=== PATIENT | female | born 1980 | race Asian ===

== ENCOUNTER 2017-03-23 23:06 | Emergency (ER) | payer OTHER ==
[2017-03-24 00:27] LABS: ABG BASE EXCESS -0.7 (-2.0-2.0); ABG HCO3 19.3 MEQ/L (22.0-26.0); ABG PARTIAL PRESSURE CO2 21.4 mmHg (35.0-45.0); ABG PARTIAL PRESSURE O2 150.4 mmHg (75.0-100.0); ABG STANDARD HCO3 23.9 MEQ/L (22.0-26.0); ABG pH (ARTERIAL) 7.574 UNITS (7.350-7.450)
[2017-03-24] MEDS: LORazepam 1 MG TAB PO (01:06)
[2017-03-24 01:49] LABS: ANION GAP 6 MEQ/L (8-16); BLOOD UREA NITROGEN 11 MG/DL (7-18); CALCIUM LEVEL 8.9 MG/DL (8.5-10.1); CARBON DIOXIDE LEVEL 30 MEQ/L (21-32); CHLORIDE LEVEL 103 MEQ/L (98-107); CREATININE FOR GFR 0.61 MG/DL (0.55-1.02); GLOMERULAR FILTRATION RATE > 60.0 (>60); GLUCOSE, FASTING 102 MG/DL (70-105); MAGNESIUM LEVEL 2.1 MG/DL (1.8-2.4); POTASSIUM SERUM 4.9 MEQ/L (3.5-5.1); SODIUM LEVEL 139 MEQ/L (136-145)
== END 2017-03-24 02:43 | disposition home or self-care (01) ==
LOC: M ED 23:06
DX: I49.49 Other premature depolarization (principal); I45.2 Bifascicular block
CPT/HCPCS: 71020

== ENCOUNTER → 2017-10-03 | Outpatient (CLI) | payer SELFPAY | LOC: M WUC 09:39 | DX: R76.11 Nonspecific reaction to tuberculin skin test without active tuberculosis (principal) | CPT/HCPCS: 71046 ==

== ENCOUNTER 2018-02-02 13:02 | Day surgery (SDC) | payer OTHER ==
[2018-02-02 15:43] LABS: BASO % 0.3 % (0.0-1.0); EOS % 0.3 % (0.0-3.0); HEMOGLOBIN 12.8 g/dl (12.0-15.5); IMMATURE GRANULOCYTE % 0.3 % (0-3.0); LYMPH # 1.6 10^3/uL (1.5-4.5); LYMPH % 9.9 % (24.0-44.0); MEAN CORPUSCULAR HEMOGLOBIN 28.6 pg (27.0-33.0); MEAN CORPUSCULAR HGB CONC 32.8 g/dl (32.0-36.5); MEAN CORPUSCULAR VOLUME 87.2 fl (80.0-96.0); MONO # 0.5 10^3/uL (0.0-0.8); MONO % 2.9 % (0.0-5.0); NEUTROPHILS # 13.6 10^3/uL (1.8-7.7); NEUTROPHILS % 86.3 % (36.0-66.0); PLATELET COUNT, AUTOMATED 346 10^3/uL (150-450); RED BLOOD COUNT 4.47 10^6/uL (4.00-5.40); RED CELL DISTRIBUTION WIDTH 13.3 % (11.5-14.5); WHITE BLOOD COUNT 15.7 10^3/uL (4.0-10.0)
[2018-02-02 15:53] LABS: CHLAMYDIA DNA AMPLIFICATION NEGATIVE (NEGATIVE); GC DNA AMPLIFICATION NEGATIVE (NEGATIVE)
[2018-02-02 16:39] LABS: ALBUMIN/GLOBULIN RATIO 1.14 (1.00-1.93); ALKALINE PHOSPHATASE 64 U/L (45-117); ALT/SGPT 32 U/L (12-78); AST/SGOT 21 U/L (7-37); BILIRUBIN,DIRECT < 0.1 MG/DL (0.0-0.2); BILIRUBIN,TOTAL 0.4 MG/DL (0.2-1.0); HCG, SERUM QUANTITATIVE 7413 MIU/ML; LIPASE 174 U/L (73-393); TOTAL PROTEIN 7.5 GM/DL (6.4-8.2)
[2018-02-02] MEDS: BUPIVACAINE HCL 0.25% 30 ML VIAL As Ordered (18:25)
[2018-02-02] MEDS ORDERED: dexameTHASONE 4 MG/ML 1ML VIAL (J1100) As Ordered (18:43)
[2018-02-02] MEDS ORDERED: NEOSTIGMINE 10 MG/10 ML VIAL (J2710) As Ordered (18:43)
[2018-02-02] MEDS ORDERED: GLYCOPYRROLATE INJ 0.2 MG/ML 2 ML VIAL As Ordered (18:43)
[2018-02-02] MEDS ORDERED: KETOROLAC 60 MG/2 ML VIAL (J1885) As Ordered (18:43)
[2018-02-02] MEDS ORDERED: METOCLOPRAMIDE INJ 10MG/2ML VIAL (J2765) As Ordered (18:43)
[2018-02-02] MEDS ORDERED: fentaNYL 250 MCG/5 ML INJECTION (J3010) As Ordered (18:43)
[2018-02-02] MEDS ORDERED: ONDANSETRON 4MG/2ML VIAL (J2405) As Ordered (18:43)
[2018-02-02] MEDS ORDERED: PROPOFOL 200 MG/20 ML VIAL As Ordered (18:43)
[2018-02-02] MEDS ORDERED: ROCURONIUM BROMIDE 50 MG/5 ML VIAL As Ordered ×2 (18:43)
[2018-02-02] MEDS ORDERED: MIDAZOLAM INJ 2 MG/2 ML VIAL (J2250) As Ordered (18:43)
[2018-02-02] MEDS ORDERED: LIDOCAINE 2% INJ 100 MG/5 ML SDV (FOR ANES.) As Ordered (18:43)
[2018-02-02] MEDS: SILVER NITRATE APPLICATOR As Ordered ×2 (18:59)
[2018-02-02] MEDS ORDERED: SUGAMMADEX SODIUM 500 MG/5 ML VIAL (BRIDION) As Ordered (19:04)
[2018-02-02] MEDS ORDERED: fentaNYL 100 MCG/2 ML INJECTION (J3010) IV (19:30)
[2018-02-02] MEDS ORDERED: METOCLOPRAMIDE INJ 10MG/2ML VIAL (J2765) IV (19:30)
[2018-02-02] MEDS ORDERED: PERCOCET 5MG/325MG TAB PO (19:30)
[2018-02-02] MEDS ORDERED: ONDANSETRON 4MG/2ML VIAL (J2405) IV (19:30)
[2018-02-02] MEDS ORDERED: MEPERIDINE INJ 25 MG/ML VIAL (J2175) IV (19:30)
[2018-02-02] MEDS ORDERED: LR 1,000 ML IV (19:30)
[2018-02-02] MEDS: IBUPROFEN 800 MG TAB PO ×2 (21:00→21:47)
[2018-02-02] MEDS ORDERED: IBUPROFEN 400 MG TAB As Ordered (21:26)
== END 2018-02-02 22:45 | disposition home or self-care (01) ==
LOC: M SDC 22:45 → M ED 13:02 → M SDC 16:43
DX: O00.102 Left tubal pregnancy without intrauterine pregnancy (principal); N73.6 Female pelvic peritoneal adhesions (postinfective); A54.85 Gonococcal peritonitis
CPT/HCPCS: 59151

== ENCOUNTER 2018-05-23 20:59 | Emergency (ER) | payer OTHER ==
[~2018-05-23] VITALS: Ht 149.9 cm; Wt 47.7 kg
[~2018-05-23 20:59] MED LIST: PRENTAB29 PO
[2018-05-23] MEDS: ALBUTEROL SULFATE 2.5 MG/0.5 ML INH NEB SOLN INH SCH ×3 (22:01→23:45)
[2018-05-23] MEDS ORDERED: predniSONE 20 MG TAB PO ONE (22:45)
[2018-05-23] MEDS ORDERED: ALBUTEROL SULFATE 2.5 MG/0.5 ML INH NEB SOLN NEB ONE (22:45)
[2018-05-23] MEDS ORDERED: PROAAER10 INH (23:47)
[2018-05-23] MEDS ORDERED: PRED20TA PO (23:47)
[2018-05-24 00:20] VITALS: BP 128/70
== END 2018-05-24 00:21 | disposition home or self-care (01) ==
LOC: M ED 20:59
DX: J45.901 Unspecified asthma with (acute) exacerbation (principal)

== ENCOUNTER → 2018-11-06 | Outpatient (REF) | payer OTHER ==
[~2018-11-06] MED LIST changes: +PRED20TA PO; +PROAAER10 INH
== END ==
LOC: M SFHCLERA 17:02
PROVIDERS: ATTEND Nurse Practitioner Family
DX: R30.0 Dysuria (principal)

== ENCOUNTER → 2019-03-02 | Outpatient (CLI) | payer OTHER ==
--- NOTE | 2019-03-02 14:18 | REP ---
Clinical: Trauma. Technique: AP, lateral, bilateral oblique and sunrise views left knee . Findings: The osseous structures and joint spaces are intact and normal. There is no evidence for acute fracture or dislocation. No joint effusion is appreciated. Surrounding soft tissues are unremarkable. No subcutaneous emphysema or radiodense foreign body. Impression: Normal examination. No acute fracture or dislocation. Electronically Signed by Harshal Garrett MD 03/02/2019 02:10 P
== END ==
LOC: M LRY 13:09
PROVIDERS: ATTEND Nurse Practitioner Family
DX: S89.92XA Unspecified injury of left lower leg, initial encounter (principal); X58.XXXA Exposure to other specified factors, initial encounter; Y92.9 Unspecified place or not applicable
CPT/HCPCS: 73564; 81025; G0463